=== PATIENT | female | born 1970 | race American Indian/Alaskan Native ===

== ENCOUNTER 2019-09-18 10:35 | Emergency (ER) | payer SELFPAY ==
[2019-09-18 11:20] VITALS: BP 119/68
--- NOTE | 2019-09-18 11:22 | Emergency Department Report ---
Chief Complaint: Dental/Oral Stated Complaint: TOOTH PAIN, POSS PINK EYE Time Seen by Provider: 09/18/19 11:18 - HPI History of Present Illness: This is a 49 y.o. F. that presents to the ER with crusting and redness to right eye since waking this morning. States family member had conjunctivitis and think she caught it from them. Using Visine eye drops which improve redness but no change in pruritus. She also complain of right upper dental pain for 3-4 days. Denies follow up with dentist. [facility] dental insurance starts in October after 90 days of starting new job. Denies change vocals, drooling, fever, chills, dysphagia, visual changes. - ROS Review of Systems: ROS: Stated complaint: dental pain and right eye redness Other details as noted in HPI Comment: All other systems reviewed and negative - Exam Vital Signs: Vital Signs 09/18/19 11:18 Temperature 99.1 F Pulse Rate 69 Respiratory 18 Rate Blood Pressure 119/68 O2 Sat by Pulse 99 Oximetry Physical Exam: - General Limitations: No Limitations General appearance: alert, in no apparent distress - Head Head exam: Present: atraumatic, normocephalic - Eye Eye exam: Present: right, injected conjunctiva, mucous discharge, PEERL. left, normal appearance - ENT ENT exam: Present: #29, dark brown dental caries center tooth, ttp, gingival swelling, uvula midline, mucous membranes moist - Neck Neck exam: Present: normal inspection, full ROM. Absent: lymphadenopathy - Respiratory Respiratory exam: Present: normal lung sounds bilaterally. Absent: respiratory distress - Cardiovascular Cardiovascular Exam: Present: regular rate, normal rhythm. Absent: systolic murmur, diastolic murmur, rubs, gallop - GI/Abdominal GI/Abdominal exam: Present: soft, normal bowel sounds - Extremities Exam Extremities exam: Present: normal inspection - Back Exam Back exam: Present: normal inspection - Neurological Exam Neurological exam: Present: alert, oriented X3 - Psychiatric Psychiatric exam: Present: normal affect, normal mood - Skin Skin exam: Present: warm, dry, intact, normal color. Absent: rash MSE screening note: Focused history and physical exam performed. Due to findings the following was ordered: ED Medical Decision Making - Medical Decision Making This is a 49-year-old female that presents with dental pain and right eye redness. Patient is stable and was examined by me. Denies contact use. There are no signs of dental abscess, corneal abrasion, or cellulitis. Patient will be started on antibiotics and pain medication. Referral to PCP for continued care. Discussed plan with patient. She agreed with ER plan. Discharged home stable with strict return instructions. ED Disposition for MSE Clinical Impression: Acute bacterial conjunctivitis of right eye, Dental caries, Dentalgia Disposition: TO HOME OR SELFCARE Is pt being admited?: No Condition: Stable Instructions: Conjunctivitis (ED), Toothache (ED) Prescriptions: Erythromycin [Erythromycin Ophth Oint] 10 applic OP QID 7 Days #1 tube Ibuprofen [Motrin 800 MG tab] 800 mg PO Q8HR PRN #30 tablet PRN Reason: Pain , Severe (7-10) Amoxicillin [Trimox CAP] 500 mg PO BID #14 capsule Referrals: [facility] [Outside] - 3-5 Days [facility] [Outside] - 3-5 Days [facility] [Outside] - 3-5 Days [facility] [Outside] - 3-5 Days Forms: Work/School Release Form(ED) Time of Disposition: 11:45
== END 2019-09-18 11:54 | disposition home or self-care (01) ==
LOC: ED 10:35
DX: H10.89 Other conjunctivitis (principal); B96.89 Other specified bacterial agents as the cause of diseases classified elsewhere; K02.9 Dental caries, unspecified; Z88.5 Allergy status to narcotic agent
CPT/HCPCS: 99282